=== PATIENT | male | born 1980 | race Two or more races ===

== ENCOUNTER 2025-04-23 16:29 | Emergency (ER) | payer MEDICAID, SELFPAY ==
[2025-04-23 17:59] VITALS: BP 188/93; BP 194/101; PULSE 70; RESP 20; TEMP 37.2; O2SAT 97; BMI 35.9
--- NOTE | 2025-04-23 18:45 | XR_ITS ---
EXAMINATION: PA chest single view TECHNIQUE: Upright PA chest single view Date and time: April 23, 2025, 1844 hours INDICATIONS: Coughing fever beginning 5 days ago FINDINGS: Mild accentuation basilar bronchovascular markings. No lobar pneumonia. No pulmonary edema. Cardiac contour is not enlarged. Intact osseous structures IMPRESSION: Basilar bronchitis pattern
--- NOTE | 2025-04-23 18:45 | XR_ITS ---
Examination: Abdomen sonogram, Limited Date and time of exam: April 23, 2025, 0843 hours INDICATIONS: Abdominal pain and coughing beginning 5 days ago Technique: Real-time xiong scale transabdominal sonographic images of the upper abdomen obtained. Findings: Normal gallbladder Normal common bile duct 0.4 cm Pancreatic head 4.5 cm Liver 14.3 cm irregular contour fatty infiltration no focal liver lesions Normal hepatopetal portal venous flow Patent IVC IMPRESSION: Normal gallbladder Technologist measures prominent pancreatic head, clinical correlation advised Primary hepatocellular disease Consider CT scan abdomen pelvis post intravenous contrast follow-up
[2025-04-23 19:12] LABS: Basophils # (Auto) 0.1 Thou/mm3 (0.0-0.2); Basophils % (Auto) 1 % (0-2.5); Eosinophils # (Auto) 0.2 Thou/mm3 (0.0-0.5); Eosinophils % (Auto) 2 % (0-10); Hematocrit 45.0 % (41.0-53.0); Hemoglobin 15.2 g/dL (13.5-16.0); Immature Granulocytes Auto 0.04 Thou/mm3 (0.00-0.00); Lymphocytes # (Auto) 3.6 Thou/mm3 (1.0-4.8); Lymphocytes % (Auto) 36 % (10-50); Mean Corpuscular HGB Conc 33.8 g/dl (31.0-37.0); Mean Corpuscular Hemoglobin 31.3 pg (25.0-35.0); Mean Corpuscular Volume 93 fL (80-100); Monocytes # (Auto) 0.9 Thou/mm3 (0.0-0.8); Monocytes % (Auto) 9 % (0-12); Neutrophils # (Auto) 5.2 Thou/mm3 (1.8-7.7); Neutrophils % (Auto) 52 % (37-80); Nucleated Red Blood Cell # 0.00 Thou/mm3 (0.00-0.00); Nucleated Red Blood Cell % 0 /100 WBC (0); Platelet Count 224 Thou/mm3 (140-440); RDW Standard Deviation 42.1 fL (35.1-43.9); Red Blood Count 4.86 Miln/mm3 (4.50-5.90); White Blood Count 10.0 Thou/mm3 (3.8-10.6)
[2025-04-23 19:28] LABS: Alanine Aminotransferase 47 U/L (10-49); Albumin, Serum 4.8 gm/dL (3.5-5.0); Albumin/Globulin Ratio 1.5 (1.2-2.2); Alkaline Phosphatase 93 U/L (46-116); Anion Gap 8 (7-16); Aspartate Amino Transferase 45 U/L (0-34); BUN/Creatinine Ratio 18 Ratio (12-20); Bilirubin,Total 0.7 mg/dL (0.3-1.2); Blood Urea Nitrogen 14 mg/dL (9-23); Calcium 10.0 mg/dL (8.3-10.6); Calcium (Corrected) 10.0 mg/dL (8.5-10.1); Carbon Dioxide 28.8 mMol/L (20.0-31.0); Chloride 104 mMol/L (98-107); Creatinine (Component) 0.8 mg/dL (0.6-1.3); Estimated Creatinine Clearance 116.7 mL/min (>60); Globulin 3.2 gm/dL (2.3-3.5); Glucose 149 mg/dL (74-106); Lipase 40 U/L (12-53); Osmolality,Calculated 284 (275-295); Potassium 4.3 mMol/L (3.4-5.1); Sodium 141 mMol/L (136-145); Total Protein 8.0 gm/dL (5.7-8.2); eGFR > 60 See Note
[2025-04-23 20:03] LABS: Collection Type, Urine Clean Catch
[2025-04-23 20:15] LABS: Bacteria,Urine Rare; Bilirubin,Urine Negative (Negative); Blood,Urine Negative (Negative); Clarity,Urine Clear (Clear/Hazy); Color,Urine Yellow (Lt Yel-Yel); Glucose, Urine 2+ (Negative); Ketones,Urine Negative (Negative); Leukocyte Esterase,Urine Negative (Negative); Nitrite,Urine Negative (Negative); PH,Urine 6.5 (5.0-7.0); Protein,Urine Trace (Neg - Trace); RBC,Urine 4 /hpf (0-3); Specific Gravity,Urine 1.032 (1.001-1.035); Squamous Epithelial Cell,Urine < 1 /hpf (0-5); Urobilinogen,Urine 2.0 mg/dL (0.0-1.0); WBC,Urine 1 /hpf (0-5)
--- NOTE | 2025-04-23 21:43 | EDNOTE_ITS ---
Upper Respiratory Inf. RME/HPI General Chief Complaint: Flu Like Symptoms Stated Complaint: Cough, fever X 5 days Time Seen by Provider: 04/23/25 16:30 Arrival date/time: 04/23/25 16:29 This is a case of 45-year-old male with no medical history came into the emergency room due to cough and subjective fever for 5 days with nasal congestion no chest pain no shortness of breath persistence of the symptoms now with epigastric abdominal pain thus patient decided to sought consult here in the emergency room no nausea no vomiting no blood in stool no constipation no diarrhea Limitations: no limitations Related Data Previous Rx's ?Medication ?Instructions ?Recorded albuterol sulfate 90 mcg/actuation 1 puff inhalation Q 4H PRN 04/23/25 aerosol inhaler (Ventolin HFA) shortness of breath or wheezing #8.5 grams benzonatate 200 mg capsule 200 mg PO BID PRN cough #20 caps 04/23/25 Allergies Allergy/AdvReac Type Severity Reaction Status Date / Time No Known Drug Allergies Allergy Verified 04/23/25 16:33 Review of Systems Review of Systems Systems Reviewed: All systems reviewed, normal except as documented Past Medical History Social History SMOKING STATUS: Former smoker ED Exam General Limitations: Present no limitations General appearance: Present alert, in no apparent distress and other (Patient is awake alert oriented not in distress nontoxic looking well-hydrated well- nourished) Head Head exam: Present atraumatic, normocephalic and normal inspection Eye Eye exam: Present normal appearance, PERRL and EOMI ENT ENT exam: Present normal exam, normal oropharynx, mucous membranes moist and other (HEENT exam is normal and unremarkable) Neck Neck exam: Present normal inspection, full ROM and trachea midline Chest Chest inspection: Present normal inspection and symmetric chest wall rise Respiratory Respiratory exam: Present normal lung sounds bilaterally; Absent respiratory distress, wheezes, stridor, accessory muscle use or prolonged expiratory phase Cardiovascular Cardiovascular exam: Present regular rate, normal rhythm and normal heart sounds; Absent bradycardia, tachycardia, irregular rhythm, systolic murmur or diastolic murmur Abdominal Exam Abdominal exam: Present soft, normal bowel sounds and other (No CVA tenderness); Absent distention, tenderness, guarding, rebound, rigidity, diminished bowel sounds, hyperactive bowel sounds, hypoactive bowel sounds, organomegaly, psoas sign, obturator sign, heel tap sign, Staples's sign, Rovsing's sign, tenderness at McBurney's Point or hernia Extremities Exam Extremities exam: Present normal inspection and full ROM Back Exam Back exam: Present normal inspection and full ROM Neurological Exam Neurological exam: Present alert, oriented X3, CN II-XII intact, normal gait and reflexes normal; Absent motor sensory deficit Psychiatric Psychiatric exam: Present normal affect and normal mood Skin Skin exam: Present warm, dry, intact, normal color and other (Excellent skin turgor) Course Quality Measures none Orders Category Date Time Status Bedside COVID-19 Antigen Test NOW Care 04/23/25 18:45 Completed Bedside Influenza A&B Antigen Test NOW Care 04/23/25 18:45 Completed US gall bladder Stat Exams 04/23/25 18:45 Completed XR chest 1V portable Stat Exams 04/23/25 18:45 Completed CBC Stat Lab 04/23/25 18:53 Completed Comprehensive Metabolic Panel Stat Lab 04/23/25 18:53 Completed Lipase Stat Lab 04/23/25 18:53 Completed Urinalysis Stat Lab 04/23/25 19:55 Completed Albuterol/Ipratr Rt Shabnam [Duoneb Rt Shabnam] Med 04/23/25 21:21 Discontinued 3 ml INH X1 ONE dexAMETHasone INJ [Decadron Inj] Med 04/23/25 21:21 Discontinued 10 mg IM X1 ONE Vital Signs Vital signs: Vital Signs Temperature 99.0 F 04/23/25 17:59 Pulse Rate 70 04/23/25 17:59 Respiratory Rate 20 04/23/25 17:59 Blood Pressure 188/93 H 04/23/25 17:59 Pulse Oximetry (%) 97 04/23/25 17:59 Oxygen Delivery Method Room Air 04/23/25 17:59 Upper Respiratory Infection MDM Narrative MDM Narrative:: Patient was discharged with comfortable condition walking with stable gait. Patient verbalized no further complains explained diagnosis and answered patient question. Patient is comfortable with the proposed management plan including the need to follow up with his/her primary care physician and any specialist if applicable Discussed patient for any urgent condition or worsening sx, He/She needed to go to emergency room immediately or call 911. Patient acknowledge the responsibility to follow up as instructed and to monitor her/his symptoms. For any persistence of the symptoms for more than 3-5 days return precaution advised. Discussed the result of the test and was given printed discharge instruction Patient data External records reviewed:: [facility] previous records Clinical information provided by:: none Social determinants that could affect healthcare access:: none Patient has the following chronic illnesses:: None How is presenting disease/condition affected by chronic disease/condition?: no chronic disease Evaluation data The following diagnostics were reviewed and interpreted by me:: lab results and radiology exam(s) Lab and/or radiology exams considered but not ordered:: Reviewed Interpretation Summary: Reviewed Medications / Prescriptions Medications or Prescriptions considered but not ordered:: Given Medication administrations:: Medication Administration History Discontinued Medications Albuterol/Ipratropium (Albuterol/Ipratropium (Duoneb) Rt Shabnam 3 Ml Nebu) 3 ml INH X1 ONE Stop: 04/23/25 21:22 Dexamethasone Sodium Phosphate (Dexamethasone Sod Phos Inj 10 Mg/Ml Vial) 10 mg IM X1 ONE Stop: 04/23/25 21:22 Given Consultations Consultation(s) initiated? (list below): No Diagnosis Upper Respiratory Differential Diagnosis: upper respiratory infection, otitis media, sinusitis, viral infection, bronchitis and influenza Most likely diagnosis given after review of the tests above:: Cough abdominal pain Admission Indicated Admission indicated?: not indicated Explain why admission is indicated or not indicated:: Not indicated Admission Request Was there a request for admission?: No Admission Attestation Admission request attestation: Not indicated Disposition Plan Disposition Plan: Discharge Discharge Attestation Discharge Attestation: The patient and all family members were given an opportunity to ask questions and understood the discharge instructions. Discharge instructions specifically effects, indications for sooner follow up or return to the emergency department, and the expected course of current diagnosis. Patient condition: Stable Discharge Plan Plan Patient Disposition: HOME (Self Care) Patient condition on transfer: Stable Prescriptions/Referrals Prescriptions/Med Rec: New benzonatate 200 mg capsule 200 mg PO BID PRN (Reason: cough) Qty: 20 0RF albuterol sulfate [Ventolin HFA] 90 mcg/actuation HFA aerosol inhaler 1 puff inhalation Q4H PRN (Reason: shortness of breath or wheezing) Qty: 8.5 0RF Rx Instructions: Please give Referrals: Maurice Srinivasan MD [Primary Care Provider, Family Practice] - In 1 week Problem List Clinical Impression: Bronchitis, Influenza, Abdominal pain, Gastritis Patient/Caregiver Discharge Instructions Education Materials: Abdominal Pain, ED Bronchitis with Wheezing (Adult), ED Influenza (Adult), ED Gastritis (Adult) Additional Instructions: It is very important to be referred to gastroenterology for further evaluation and treatment of gastritis and further evaluation of pancreatic head abnormality for possible CT scan of the abdomen pelvis with contrast as suggested by the radiologist follow-up with your primary care physician in 2 days for reevaluation and to be referred to surgical consultant recurrence persistent worsening symptoms or any emergent concern call 911 or go to the nearest emergency room take your medication as directed finish the course of antibiotic increase water intake keep hydrated Pedialyte Gatorade for hydration is advised no skipping of meals to avoid spicy food avoid fatty fried high cholesterol food is advised Print Language: Vietnamese Stand Alone Forms: [employer] Award Info., Patient Portal Info Letter PA/SUPERVIS[employer]ULT [employer]UC[employer] Supervising Physician PA/SUPER[employer] Supervising Physician: Dr. Schrader
== END 2025-04-23 22:21 | disposition home or self-care (01) ==
PROVIDERS: Nurse Practitioner Family; Emergency Provider Emergency Medicine; PCP Family Medicine
DX: J11.1 Influenza due to unidentified influenza virus with other respiratory manifestations (principal); K29.70 Gastritis, unspecified, without bleeding; Z87.891 Personal history of nicotine dependence
CPT/HCPCS: 36415; 71045; 76705; 80053; 81001; 83690; 85025; 87502; 87635; 99283